=== PATIENT | male | born 1955 | race Caucasian/White ===

== ENCOUNTER 2021-05-02 17:49 | Emergency (ER) | payer OTHER ==
[~2021-05-02] VITALS: Ht 180.3 cm; Wt 88.0 kg
--- NOTE | 2021-05-02 19:58 | RAD ---
EXAMINATION: XR SHOULDER_RIGHT 2+ VIEWS CLINICAL HISTORY: Trauma TECHNIQUE: XR SHOULDER_RIGHT 2+ VIEWS Number of Images/Views: 3 COMPARISON: None FINDINGS: Glenohumeral joint alignment maintained. Elevation of the distal clavicle relative to the acromion wi th acromioclavicular degenerative changes. No acute fracture. IMPRESSION: Acromioclavicular degenerative changes with elevation of the distal clavicle, correlate for AC joint injury. Electronically signed by: Angel Cyr DO (05/02/2021 7:55 PM) [place]
[2021-05-02] MEDS ORDERED: ACET1TAB33 PO (20:32)
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
[2021-05-02] MEDS ORDERED: NEOMY/BACITR/POLYMYXIN OINT PACKET. TP ONE (20:54)
[2021-05-02 21:00] VITALS: BP 176/86
== END 2021-05-02 21:00 | disposition home or self-care (01) ==
LOC: ER 17:49
DX: S43.101A Unspecified dislocation of right acromioclavicular joint, initial encounter (principal); V19.88XA Pedal cyclist (driver) (passenger) injured in other specified transport accidents, initial encounter; Y93.89 Activity, other specified; Y92.488 Other paved roadways as the place of occurrence of the external cause; Y99.8 Other external cause status
CPT/HCPCS: 73030; 99283